=== PATIENT | male | born 1965 ===

== ENCOUNTER 2016-07-01 07:14 | Observation (INO) | payer OTHER ==
[2016-07-01 07:20] VITALS: BMI 34.0
--- NOTE | 2016-07-01 08:43 | ED PDOC ---
Syncope/Near Syncope/Dizzyness Time Seen by Provider: 07/01/16 08:07 Chief Complaint (Nursing): Dizziness/Lightheaded Chief Complaint (Provider): Dizziness History Per: Patient History/Exam Limitations: no limitations Onset/Duration Of Symptoms: Days (x5), Intermittent Episodes Current Symptoms Are (Timing): Still Present Fall Associated With With Symptoms: No Severity: Mild Additional Complaint(s): Patient is a 51 year old male presenting to the ED complaining of intermittent dizziness x5 days. Dizziness is associated with headache and right sided paresthesia. Patient reports right arm and right foot. Patient reports mild headache currently. Patient reports usually steady gait, but times weakness tor right side. Denies chest pain, speech changes, or syncope. PMD: Dr. Valerie Hansen [place] Past Medical History Reviewed: Historical Data, Nursing Documentation, Vital Signs Vital Signs: Last Vital Signs Temp 97.7 F 07/01/16 07:19 Pulse 73 07/01/16 07:19 Resp BP 118/73 07/01/16 07:19 Pulse Ox 98 07/01/16 07:19 - Medical History PMH: HTN, Hypercholesterolemia Denies: Chronic Kidney Disease - Surgical History Surgical History: No Surg Hx - Family History Family History: States: No Known Family Hx - Home Medications Home Medications: Ambulatory Orders Medication Instructions Recorded Aspirin [Ecotrin] 81 mg PO DAILY 07/01/16 Rosuvastatin Calcium [Crestor] 10 mg PO DAILY 07/01/16 amLODIPine [Norvasc] 10 mg PO DAILY 07/01/16 - Allergies Allergies/Adverse Reactions: Allergies Allergy/AdvReac Type Severity Reaction Status Date / Time No Known Allergies Allergy Verified 07/01/16 07:26 Review of Systems ROS Statement: Except As Marked, All Systems Reviewed And Found Negative Constitutional: Negative for: Fever Neurological: Positive for: Headache, Dizziness, Other (right sided parasthesia) Physical Exam - Reviewed Nursing Documentation Reviewed: Yes Vital Signs Reviewed: Yes - Physical Exam Appears: Positive for: Well, Non-toxic, No Acute Distress Head Exam: Positive for: ATRAUMATIC, NORMAL INSPECTION, NORMOCEPHALIC Skin: Positive for: Normal Color, Warm, DRY Eye Exam: Positive for: EOMI, Normal appearance, PERRL Neck: Positive for: Normal, Painless ROM Cardiovascular/Chest: Positive for: Regular Rate, Rhythm. Negative for: Gallop , Murmur Respiratory: Positive for: Normal Breath Sounds. Negative for: Accessory Muscle Use, Rhonchi, Respiratory Distress Extremity: Positive for: Normal ROM Neurologic/Psych: Positive for: Alert, field service manager II-XII (intact), Oriented, Gait ( steady). Negative for: Motor/Sensory Deficits, Facial Droop - Laboratory Results Result Diagrams: 07/01/16 09:44 07/01/16 09:44 - ECG O2 Sat by Pulse Oximetry: 98 (RA) Pulse Ox Interpretation: Normal Medical Decision Making Medical Decision Making: Time: 8:10 Impression: CVA v Complex Migraine v Multiple Sclerosis other diagnosis considered but not r/o Plan: CT Head EKG BMP Troponin CBC CT head no acute findings Discussed with Dr Yeboah who will be on consult Scribe Attestation: Documented by Zulma Ley acting as a scribe for Chapito Martinez MD. Scribe Attestation: All medical record entries made by the Scribe were at my direction and personally dictated by me. I have reviewed the chart and agree that the record accurately reflects my personal performance of the history, physical exam, medical decision making, and the department course for this patient. I have also personally directed, reviewed, and agree with the discharge instructions and disposition. Disposition - Clinical Impression Clinical Impression: Dizziness, Paresthesia - Patient ED Disposition Is Patient to be Admitted: Yes Discussed With : Kael Velarde Doctor Will See Patient In The: Hospital Counseled Patient/Family Regarding: Studies Performed, Diagnosis - Disposition Disposition Time: 11:00 Condition: FAIR - Pt Status Changed To: Hospital Disposition Of: Observation - POA Present On Arrival: None
[2016-07-01 09:54] LABS: BASO % 0.6 % (0.0-2.0); EOS # 0.1 K/uL (0.0-0.7); EOS % 1.1 % (0.0-4.0); HEMATOCRIT 39.7 % (35.0-51.0); LYMPH # 1.6 K/uL (1.0-4.3); LYMPH % 30.5 % (20.0-40.0); MEAN CELL VOLUME 78.9 fl (80.0-94.0); MEAN CORPUSCULAR HEMOGLOBIN 26.2 pg (27.0-31.0); MEAN CORPUSCULAR HGB CONC 33.2 g/dL (33.0-37.0); MEAN PLATELET VOLUME 8.3 fl (7.2-11.7); MONO # 0.4 K/uL (0.0-0.8); MONO % 7.7 % (0.0-10.0); NEUT # 3.2 K/uL (1.8-7.0); NEUT % 60.1 % (50.0-75.0); NRBC % 0.1 % (0.0-0.0); RED CELL DISTRIBUTION WIDTH 14.9 % (11.5-14.5); WHITE BLOOD COUNT 5.3 K/uL (4.8-10.8)
[2016-07-01 10:07] LABS: BLOOD UREA NITROGEN 12 mg/dl (9-20); CARBON DIOXIDE 29 mmol/L (22-30); CHLORIDE 99 mmol/L (98-107); GFR AFRICAN-AMERICAN > 60; GLUCOSE,RANDOM 92 mg/dL (75-110); POTASSIUM 4.4 MMOL/L (3.6-5.0); SODIUM 138 mmol/l (132-148)
--- NOTE | 2016-07-01 10:21 | CT ---
PROCEDURE: CT HEAD WITHOUT CONTRAST. HISTORY: dizziness COMPARISON: No prior TECHNIQUE: Axial computed tomography images were obtained through the head/brain without intravenous contrast. Radiation dose: Total exam DLP = 791.34 mGy-cm. This CT exam was performed using one or more of the following dose reduction techniques: Automated exposure control, adjustment of the mA and/or kV according to patient size, and/or use of iterative reconstruction technique. FINDINGS: HEMORRHAGE: No intracranial hemorrhage. BRAIN: No mass effect or edema. No atrophy or chronic microvascular ischemic changes. VENTRICLES: Unremarkable. No hydrocephalus. CALVARIUM: Unremarkable. PARANASAL SINUSES: Mild mucosal thickening seen within the ethmoid air complex. MASTOID AIR CELLS: Unremarkable as visualized. No inflammatory changes. OTHER FINDINGS: None. IMPRESSION: No acute intracranial hemorrhage.
--- NOTE | 2016-07-01 10:23 | CARD ---
APPROVED REPORT EKG Measurement Heart [id number] <Conclusion> Normal sinus rhythm Normal ECG
--- NOTE | 2016-07-01 12:56 | US ---
PROCEDURE: Duplex ultrasound of the carotid and vertebral arteries. HISTORY: right sided paresthesia COMPARISON: None available. TECHNIQUE: Grayscale and duplex Doppler evaluation of the cervical carotid and vertebral arteries were performed. The common carotid, carotid bifurcations and cervical ICA and proximal ECA were evaluated. The vertebral arteries were evaluated for gross patency and direction. FINDINGS: RIGHT CAROTID ARTERIES: Common Carotid Artery: . No significant atherosclerotic plaque. Maximal flow velocity 86.0 cm/s. Internal Carotid Artery:Normal. Maximal flow velocity of 82.0 cm/s. ICA/CCA Ratio: 1.0 LEFT CAROTID ARTERIES: Common Carotid Artery: No significant atherosclerotic plaque. . Maximal flow velocity of 117.7 cm/s. Internal Carotid Artery:Normal. Maximal flow velocity of 90.9 cm/s. ICA/CCA Ratio: 0.8 VERTEBRAL ARTERIES: Right Vertebral Artery: Patent. Antegrade flow. Left Vertebral Artery: Patent. Antegrade flow. OTHER FINDINGS: None. IMPRESSION: No evidence of significant plaque or stepped up velocities.
[2016-07-01 16:41] LABS: CHOLESTEROL 179 mg/dL (0-199)
--- NOTE | 2016-07-01 18:22 | MRI ---
PROCEDURE: MRI BRAIN WITHOUT CONTRAST HISTORY: paresthesia right sided COMPARISON: None. TECHNIQUE: Multiplanar, multisequence MR images of the brain were obtained without intravenous contrast enhancement. FINDINGS: HEMORRHAGE: None DWI: No evidence of an acute or early subacute infarction. BRAIN PARENCHYMA: No mass effect or edema. No atrophy or chronic microvascular ischemic changes. VENTRICLES: Unremarkable. No hydrocephalus. CRANIUM: Unremarkable. ORBITS: Grossly unremarkable. PARANASAL SINUSES/MASTOIDS: Mild mucosal thickening seen in the sinuses. VASCULAR SYSTEM: Skull base flow voids intact. OTHER FINDINGS: None. IMPRESSION: No evidence of acute infarct. No evidence of acute pathology in the brain. No evidence of mass lesion mass effect or midline shift. Mild sinuses mucosal thickening.
--- NOTE | 2016-07-01 19:11 | CON ---
DATE: 07/01/2016 REASON FOR CONSULTATION: Dizziness. HISTORY OF PRESENT ILLNESS: The patient is a 51-year-old male who came to the Emergency Room with co mplaints of dizziness for the last 4-5 days. The dizziness was initially described as a spinning sen sation. Now it is mostly a lightheaded feeling. It is on and off. It can last for anywhere from 20 minutes to an hour. He was also experiencing some numbness and paraesthesias on the right side asso ciated with dizziness. He was also experiencing headache. At the moment, he feels fine. REVIEW OF SYSTEMS: Denies any chest pain, shortness of breath, abdominal pain, constipation, diarrhe a, dysuria, pyuria, cough, sputum production, joint pain, skin rash, hallucinations. PAST MEDICAL HISTORY: Includes hypertension, hypercholesterolemia. MEDICATIONS: At home include aspirin 81 mg, losartan/hydrochlorothiazide, Crestor and Norvasc. ALLERGIES: No known drug allergies. SOCIAL HISTORY: He denies smoking, use of alcohol or illicit drugs. FAMILY HISTORY: Reviewed and noncontributory to the case. PHYSICAL EXAMINATION: GENERAL: The patient is a middle-aged male lying on the bed, in no acute distress. VITAL SIGNS: His blood pressure is 137/79, heart rate is 62 per minute, breathing at a rate of 16 pe r minute, temperature is 98.1 degrees Fahrenheit. HEENT: Normocephalic, atraumatic. NECK: Supple. There are no carotid bruits. LUNGS: Clear. CARDIOVASCULAR: S1, S2 audible with no murmurs. ABDOMEN: Soft, nontender. Bowel sounds present. NEUROLOGIC EXAMINATION: MENTAL STATUS: The patient is awake, alert, oriented to time, place, person. Speech is fluent. Nam ing and repetition normal. Memory and cognition are intact. CRANIAL NERVES: Pupils are 4 mm bilaterally, reactive to light. Visual bal are full. Extraocula r movements are intact. There is no facial asymmetry. Palate is upgoing bilaterally and tongue is m idline. MOTOR: Tone is normal. Power is 5/5 bilaterally in all extremities. Reflexes +2 and symmetrical. Plantars downgoing bilaterally. CEREBELLAR: [id number] shows no dysmetria. LABORATORY DATA: Reviewed, shows WBC of 5.3, hemoglobin 13.2, hematocrit 39.7 and platelets of 256. Sodium is 138, potassium 4.4, chloride 99, carbon dioxide content 29, BUN of 12, creatinine 0.7, and glucose of 92. He had a CT scan of the head done, which shows no acute intracranial hemorrhage. IMPRESSION: Intubated. Dizziness associated with some mild headache and right-sided numbness. Poss ible transient ischemic attack versus vestibular migraine. RECOMMENDATIONS: 1. The patient to have MRI and MRA of the brain. 2. The patient had a carotid Doppler study done which shows no significant stenosis. 3. The patient to be continued on aspirin and statin. 4. If the patient's MRI of the brain shows no acute intracranial pathology and he remains stable, th en he may be discharged tomorrow with outpatient followup. Thank you for the opportunity to participate in the care of this patient. Lizet Yeboah MD cc: 142 TT: 07/01/2016 19:10:58 Confirmation # [id number] Dictation # [id number] mn
[2016-07-02 00:05] VITALS: RESP 20
--- NOTE | 2016-07-02 08:42 | CP.PCM.HP ---
History of Present Illness - History of Present Illness History of Present Illness: 51yo M with PMHx HTN, HLD admitted for dizziness a/w right sideded paresthesia. c/o dizziness x4-5 days, intermittent, denies any current dizziness. paresthesia x15 minutes which resolved. a/w H/A. Denies vision change, facial droop, slurring of speech, focal weakness, prior incident. Compliant with meds. PMHx as above SHx: L knee surgery Allergies: NKDA Social: denies x3 PMD: Dr. Valerie Hansen [place] ED course: CT head no acute change MRI brain no acute change MRA head/neck c/s Neuro ASA 325mg x1 Present on Admission - Present on Admission Any Indicators Present on Admission: No Review of Systems - Constitutional Constitutional: absent: Chills, Fever - EENT Eyes: absent: Change in Vision - Cardiovascular Cardiovascular: absent: Chest Pain - Respiratory Respiratory: absent: Dyspnea - Gastrointestinal Gastrointestinal: absent: Abdominal Pain, Diarrhea, Nausea, Vomiting - Genitourinary Genitourinary: absent: Dysuria, Hematuria - Musculoskeletal Musculoskeletal: absent: Back Pain - Neurological Neurological: Headaches, Tingling. absent: Weakness Past Patient History - Past Medical History & Family History Past Medical History?: No - Past Social History Smoking Status: Former Smoker - CARDIAC Hx Cardiac Disorders: Yes Hx Hypercholesterolemia: Yes Hx Hypertension: Yes - PULMONARY Hx Respiratory Disorders: No - NEUROLOGICAL Hx Neurological Disorder: No - HEENT Hx HEENT Problems: No - RENAL Hx Chronic Kidney Disease: No - ENDOCRINE/METABOLIC Hx Endocrine Disorders: No - HEMATOLOGICAL/ONCOLOGICAL Hx Blood Disorders: No - INTEGUMENTARY Hx Dermatological Problems: No - MUSCULOSKELETAL/RHEUMATOLOGICAL Hx Falls: No - GASTROINTESTINAL Hx Gastrointestinal Disorders: No - GENITOURINARY/GYNECOLOGICAL Hx Genitourinary Disorders: No - PSYCHIATRIC Hx Substance Use: No - SURGICAL HISTORY Hx Surgeries: Yes Other/Comment: Left knee surgery - ANESTHESIA Hx Anesthesia: Yes Hx Anesthesia Reactions: No Hx Malignant Hyperthermia: No Has any member of the family had a problem w/ anesthesia?: No Meds Allergies/Adverse Reactions: Allergies Allergy/AdvReac Type Severity Reaction Status Date / Time No Known Allergies Allergy Verified 07/01/16 07:26 Physical Exam - Constitutional Appears: Non-toxic, No Acute Distress - Head Exam Head Exam: NORMAL INSPECTION - Eye Exam Eye Exam: EOMI, PERRL Pupil Exam: PERRL - ENT Exam ENT Exam: Mucous Membranes Moist - Neck Exam Neck exam: Positive for: Normal Inspection - Respiratory Exam Respiratory Exam: Clear to Auscultation Bilateral - Cardiovascular Exam Cardiovascular Exam: REGULAR RHYTHM - GI/Abdominal Exam GI & Abdominal Exam: Normal Bowel Sounds, Soft - Back Exam Back exam: NORMAL INSPECTION - Neurological Exam Neurological exam: Alert, CN II-XII Intact, Normal Gait, Oriented x3 Additional comments: sensation/motor grossly intact Romberg neg extremity drift neg finger to nose neg heel to cerna neg gait stable - Skin Skin Exam: Dry, Warm Results - Vital Signs Recent Vital Signs: Last Vital Signs Temp 97.7 F 07/02/16 08:26 Pulse 58 L 07/02/16 08:26 Resp 20 07/02/16 08:26 BP 113/70 07/02/16 08:26 Pulse Ox 97 07/02/16 08:26 - Labs Result Diagrams: 07/01/16 09:44 07/01/16 09:44 Assessment & Plan - Assessment and Plan (Free Text) Assessment: 51yo M with PMHx HTN, HLD admitted for dizziness a/w right sideded paresthesia. dizziness a/w right sided paresthesia -symptoms have resolved -DDx includes TIA, migraine, atherosclerosis -CT head no acute change -MRI brain no acute change -MRA head/neck -c/s Neuro. clear for d/c once MRI/MRA shows no acute changes and FU in 1 week -ASA 81mg -statin -TSH, B12 -PT/OT HTN -hold BP meds for now as BP normotensive DVT ppx -lovenox Dispo: d/c today if MRA head/neck shows no acute pathology and FU neuro Dr. Yeboah in 1 week Decision To Admit - Pt Status Changed To: Hospital Disposition Of: Observation - . Bed Request Type: Telemetry Admitting Physician: Kael Velarde
[2016-07-02] MEDS ORDERED: Enoxaparin 40 mg Syringe SC SCH (09:00)
[2016-07-02 09:48] LABS: THYROID STIMULATING HORMONE 1.12 mIU/ML (0.46-4.68)
--- NOTE | 2016-07-02 12:30 | CP.PCM.DIS ---
Provider - Provider Date of Admission: 07/01/16 11:24 Attending physician: Kael Velarde MD Time Spent in preparation of Discharge (in minutes): 30 Diagnosis - Discharge Diagnosis (1) Paresthesia Status: Acute (2) Dizziness Status: Acute Hospital Course - Lab Results Lab Results: Most Recent Lab Values WBC 5.3 K/uL (4.8-10.8) 07/01/16 09:44 RBC 5.03 Mil/uL (4.40-5.90) 07/01/16 09:44 Hgb 13.2 g/dL (12.0-18.0) 07/01/16 09:44 Hct 39.7 % (35.0-51.0) 07/01/16 09:44 MCV 78.9 fl (80.0-94.0) L 07/01/16 09:44 MCH 26.2 pg (27.0-31.0) L 07/01/16 09:44 MCHC 33.2 g/dL (33.0-37.0) 07/01/16 09:44 RDW 14.9 % (11.5-14.5) H 07/01/16 09:44 Plt Count 256 K/uL (130-400) 07/01/16 09:44 MPV 8.3 fl (7.2-11.7) 07/01/16 09:44 Neut % (Auto) 60.1 % (50.0-75.0) 07/01/16 09:44 Lymph % (Auto) 30.5 % (20.0-40.0) 07/01/16 09:44 [place] % (Auto) 7.7 % (0.0-10.0) 07/01/16 09:44 Eos % (Auto) 1.1 % (0.0-4.0) 07/01/16 09:44 Baso % (Auto) 0.6 % (0.0-2.0) 07/01/16 09:44 Neut # 3.2 K/uL (1.8-7.0) 07/01/16 09:44 Lymph # 1.6 K/uL (1.0-4.3) 07/01/16 09:44 [place] # 0.4 K/uL (0.0-0.8) 07/01/16 09:44 Eos # 0.1 K/uL (0.0-0.7) 07/01/16 09:44 Baso # 0.0 K/uL (0.0-0.2) 07/01/16 09:44 Sodium 138 mmol/l (132-148) 07/01/16 09:44 Potassium 4.4 MMOL/L (3.6-5.0) 07/01/16 09:44 Chloride 99 mmol/L (98-107) 07/01/16 09:44 Carbon Dioxide 29 mmol/L (22-30) 07/01/16 09:44 Anion Gap 14 (10-20) 07/01/16 09:44 BUN 12 mg/dl (9-20) 07/01/16 09:44 Creatinine 0.7 mg/dL (0.8-1.5) L 07/01/16 09:44 Est GFR ( Amer) > 60 07/01/16 09:44 Est GFR (Non-Af Amer) > 60 07/01/16 09:44 POC Glucose (mg/dL) 94 mg/dL (65-110) 07/01/16 07:35 Random Glucose 92 mg/dL (75-110) 07/01/16 09:44 Calcium 9.0 mg/dL (8.4-10.2) 07/01/16 09:44 Troponin I < 0.0120 ng/mL (0.00-0.120) 07/01/16 09:44 Triglycerides 169 mg/DL (0-149) H 07/01/16 09:45 Cholesterol 179 mg/dL (0-199) 07/01/16 09:45 LDL Cholesterol Direct 100 mg/dL (0-129) 07/01/16 09:45 HDL Cholesterol 45 MG/DL (30-70) 07/01/16 09:45 Vitamin B12 239 pg/mL (239-931) 07/02/16 08:53 TSH 3rd Generation 1.12 mIU/ML (0.46-4.68) 07/02/16 08:53 - Hospital Course Hospital Course: 51yo M with PMHx HTN, HLD admitted for dizziness a/w right sideded paresthesia. Symptoms had resolved by time pt was in the ED. DDx includes TIA, migraine, atherosclerosis of arteries, medication side effect. CT head showing no acute change. MRI brain showing no acute change. MRA head/neck showing mild stenosis proximal left posterior cerebral artery, otherwise no other significant stenosis. c/s Neuro Dr. Yeboah with recommendation to d/c pt if MRI/MRA shows no acute changes and FU in 1 week. Pt to continue ASA 81mg and statin. BP meds were held d/t pt having normotensive BP and to be restarted with PCP. Discharge Plan - Follow Up Plan Condition: STABLE Disposition: HOME/ ROUTINE Instructions: Weakness (GEN) Additional Instructions: follow up with PCP within 1 week will stop BP med for now, restart with PCP follow up with neurology within 1 week Referrals: Lizet Yeboah MD [Staff Provider] -
--- NOTE | 2016-07-02 12:35 | MRI ---
PROCEDURE: MR Angiography of the neck without contrast HISTORY: dizziness COMPARISON: None available. TECHNIQUE: 3D [id number] angiography of the neck was performed. Rotating maximum intensity projection images of the cervical carotid and vertebral arteries were generated. The origins of the common carotid arteries were not visualized, which is a limitation inherent to the non-contrast time of flight technique. FINDINGS: RIGHT CAROTID ARTERIES: Common Carotid Artery: Normal. Carotid Bifurcation: Normal. Internal Carotid Artery:Normal. External Carotid Artery (proximal branches): Normal. LEFT CAROTID ARTERIES: Common Carotid Artery: Normal. Carotid Bifurcation: Normal. Internal Carotid Artery:Normal. External Carotid Artery (proximal branches): Normal. VERTEBRAL ARTERIES: The proximal vertebral arteries as not in the field of view however the visualized on cervical vertebral arteries are patent. There is mild asymmetry of the vertebral arteries, right-sided which is slightly larger in caliber than the left. OTHER FINDINGS: None. IMPRESSION: Unremarkable MRA of the neck
--- NOTE | 2016-07-02 12:43 | MRI ---
PROCEDURE: Magnetic Resonance Angiography Brain HISTORY: paresthesia COMPARISON: None available. TECHNIQUE: 3D time of flight MR angiography of the intracranial arteries was performed. Rotating maximum intensity projection images were generated. FINDINGS: INTERNAL CEREBRAL ARTERIES: Unremarkable. The skull base, petrous, cavernous and supraclinoid segments are bilaterally widely patient. ANTERIOR CEREBRAL ARTERIES: Unremarkable. A1 and A2 segments are widely patent. Smaller distal branches unremarkable, as visualized. MIDDLE CEREBRAL ARTERIES: Unremarkable. M1 and M2 segments are widely patent. Perisylvian branches grossly symmetric. POSTERIOR CIRCULATION: Basilar Artery: Unremarkable. Distal Vertebral Arteries: Unremarkable. Posterior Cerebral Arteries: Unremarkable. Posterior Inferior Cerebellar Arteries: There is slight focal irregularity/narrowing of the left-sided P3 segment which could be due to some tortuosity. The possibility of some atherosclerotic disease cannot be completely excluded of ANEURYSM/ VASCULAR MALFORMATIONS: None. OTHER FINDINGS: None. IMPRESSION: No evidence of large aneurysm nor vascular mild formation. Slight focal regularity/narrowing left P3 segment could be secondary to some tortuosity however focal area of stenosis not completely excluded.
[2016-07-02 12:52] VITALS: BP 121/77; PULSE 64; TEMP 98.2
[2016-07-05 21:25] VITALS: O2SAT 98
== END 2016-07-02 14:44 | disposition home or self-care (01) ==
LOC: H.ER 07:14 → H.ERHOLD 11:24 → H.TEL 12:58
PROVIDERS: ADMIT Internal Medicine; ATTEND Internal Medicine
DX: E78.5 Hyperlipidemia, unspecified (principal); I10 Essential (primary) hypertension; R20.9 Unspecified disturbances of skin sensation; Z79.82 Long term (current) use of aspirin; E78.00 Pure hypercholesterolemia, unspecified